=== PATIENT | male | born 1995 | race Caucasian/White ===

== ENCOUNTER 2020-05-12 17:30 | Emergency (ER) | payer MEDICAID, SELFPAY ==
[2020-05-12 18:01] VITALS: BP 133/73; PULSE 93; RESP 14; TEMP 36.5; O2SAT 98; BMI 22.0
[2020-05-12 19:21] VITALS: BP 110/58; PULSE 87; RESP 17; TEMP 36.9; O2SAT 98
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
--- NOTE | 2020-05-12 20:53 | PC.NURSE ---
Pt is resting in bed, no sign of distress.
[2020-05-12] MEDS: iohexoL 350 MG/ML 100 ML INFUS..BTL IV (21:24)
[2020-05-12 21:48] LABS: MANUAL DIFF FLAG NO
[2020-05-12 21:49] LABS: Basophils Absolute Auto 0.1 X10*3/uL (0.0-0.2); Basophils Percent Auto 0.9 % (0-2); Eosinophils Absolute Auto 0.1 X10*3/uL (0.0-0.4); Eosinophils Percent Auto 0.5 % (0-4); Hematocrit 38.7 % (42-52); Hemoglobin 13.4 g/dl (14.0-18.0); Imm Gran Abs Auto 0.03 X10*3/uL (0.00-0.03); Imm Gran Pct Auto 0.3 % (0.0-0.4); Lymphocytes Absolute Auto 2.2 X10*3/uL (1.2-4.9); Mean Corpuscular HGB Conc 34.6 g/dl (31.0-36.0); Mean Corpuscular Hemoglobin 29.9 pg (27.0-33.0); Mean Corpuscular Volume 86.4 fL (80-98); Monocytes Absolute Auto 0.9 X10*3/uL (0.1-1.2); Monocytes Percent Auto 7.7 % (2-11); Neutrophils Absolute Auto 8.3 X10*3/uL (2.0-8.3); Neutrophils Percent Auto 71.6 % (45-73); Platelet Count 289 X10*3/uL (160-400); Red Blood Count 4.48 X10*6/uL (4.60-5.80); Red Cell Distribution Width 13.1 % (11.0-16.0); White Blood Count 11.6 X10*3/uL (4.8-10.8)
[2020-05-12 22:19] VITALS: BP 94/56; PULSE 81; RESP 20; TEMP 36.7; O2SAT 98
[2020-05-12 22:22] LABS: Anion Gap 12 (12-20); Blood Urea Nitrogen 10 mg/dL (9-16); Carbon Dioxide 24 mmol/L (22-29); Chloride 106 mmol/L (96-108); Creatinine Clr Calc Pharmacy 127.6; Estimated Glomerular Filt Rate > 60; Glucose Random 86 mg/dL (60-115); Potassium 3.6 mmol/l (3.3-5.1); Sodium 138 mmol/L (135-145)
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
[2020-05-13] MEDS: Ibuprofen 600 MG TABLET PO (00:30)
[2020-05-13] MEDS: Amoxicillin/Potassium Clav 875 MG TABLET PO (00:31)
== END 2020-05-13 00:34 | disposition home or self-care (01) ==
PROVIDERS: Nurse Practitioner Family; Emergency Provider Emergency Medicine
DX: S41.112A Laceration without foreign body of left upper arm, initial encounter (principal); S10.93XA Contusion of unspecified part of neck, initial encounter; X99.8XXA Assault by other sharp object, initial encounter; M54.2 Cervicalgia; M25.511 Pain in right shoulder; Y93.9 Activity, unspecified; Y92.019 Unspecified place in single-family (private) house as the place of occurrence of the external cause; Y99.9 Unspecified external cause status
CPT/HCPCS: 36415; 70450; 70491; 71260; 73201; 74177; 80048; 85025; 90471; 90715; 99284

== ENCOUNTER 2020-12-26 11:12 | Emergency (ER) | payer MEDICAID, SELFPAY ==
--- NOTE | ~2020-12-26 | XR_ITS ---
EXAMINATION: XR CHEST CLINICAL INFORMATION: Difficulty breathing. Rule out pneumonia COMPARISON: CT chest 05/12/2020 TECHNIQUE: Portable AP upright view of the chest was obtained. FINDINGS: No significant abnormality is noted involving the heart, lungs, mediastinum, bony thorax or soft tissues. XR/XR chest 1V IMPRESSION: Unremarkable examination.
[2020-12-26 12:06] VITALS: BP 120/74; PULSE 95; RESP 16; TEMP 36.5; O2SAT 96; BMI 19.9
--- NOTE | 2020-12-26 12:21 | ED_ITS ---
HPI - URI/Sore Throat General Chief Complaint: Upper Respiratory Symptoms Stated Complaint: allergic reaction Time Seen by Provider: 12/26/20 12:14 Source: patient Mode of arrival: ambulatory Limitations: no limitations History of Present Illness HPI Narrative: 25 yo male with past medical history of asthma here with complaints of sore throat, cough with chest congestion x2 days. Also has some mild shortness of breath with wheezing. Ran out of his inhaler. No fevers or chills or sick contacts. No chest pain, leg swelling or pain. Related Data Previous Rx's Medication Instructions Recorded amoxicillin-pot clavulanate 1 tab PO Q12H 10 Days #20 tab 05/12/20 [Augmentin] ibuprofen 600 mg PO Q8H PRN #30 tab 05/12/20 Allergies Allergy/AdvReac Type Severity Reaction Status Date / Time No Known Allergies Allergy Verified 12/26/20 12:11 [No Known Allergies*] Review of Systems Review of Systems: Yes all other systems are reviewed and are negative Constitutional: Constitutional: Reports no additional constitutional complaints, Denies body ache(s), Denies chills, Denies fever(s), Denies headache(s) and Denies weakness Eyes: Eyes: Reports no additional eye complaints and Denies change in vision ENT: Reports system reviewed and no additional complaints, except as documented, Denies dizziness, Denies headache(s), Denies nasal congestion, Denies nasal discharge, Denies neck pain and Reports sore throat Cardiovascular: Cardiovascular: Reports no additional cardiovascular complaints, Denies chest pain, Denies leg edema and Reports dyspnea Respiratory: Respiratory: Reports no additional respiratory complaints, Reports cough and Reports dyspnea Gastrointestinal: Gastrointestinal: Reports no additional gastrointestinal complaints, Denies abdominal pain, Denies diarrhea, Denies nausea and Denies vomiting Genitourinary: Genitourinary: Denies urinary incontinence Musculoskeletal: Musculoskeletal: Reports no additional musculoskeletal complaints, Denies back pain, Denies arthralgias, Denies joint swelling, Denies neck pain, Denies numbness and Denies tingling Integumentary/Breasts: Skin/Breast: Reports system reviewed and no additional complaints, except as docu and Denies rash Neurologic: Reports system reviewed and no additional complaints, except as documented, Denies Abnormal speech present, Denies dizziness, Denies headache(s), Denies numbness, Denies tingling and Denies weakness [facility] Past Medical History Attestation statement: The following information was validated with the patient. Source: old records reviewed and nursing notes reviewed Medical History ADHD Bipolar disorder Personality disorder Social History Social History Substance Use Type: Marijuana Advance Directives: No Advance Directives Information Provided: No Physical Exam Vital Signs: Vital Signs: Last Vital Signs Temp 97.7 F 12/26/20 12:06 Pulse 87 12/26/20 14:33 Resp 18 12/26/20 14:33 BP 120/74 12/26/20 12:06 Pulse Ox 99 12/26/20 14:33 Body Mass Index 19.9 Const: General: cooperative, healthy appearing, comfortable and no acute distress Orientation/consciousness: patient oriented x3 Limitations: no limitations HENMT: Head: Yes normal to inspection Ears: hearing grossly normal bilaterally and TM's normal bilaterally General nose exam: Normal external nose present Face and sinus: Yes normal facial exam Mouth: Normal oral and palatal mucosa present Throat: Yes posterior oropharynx normal, Yes uvula midline, Yes abnormal tonsil (Bilateral tonsillar swelling and erythema) and No peritonsillar mass Eyes: General: appearance normal, both eyes and all related structures Pupils: Equal, round and reactive pupils present Neck: Neck: Yes normal visual inspection, Yes full ROM, Yes no lymphadenopathy and Yes no meningeal signs Chest: Chest palpation & inspection: normal inspection of the chest Resp: Other: Mild expiratory wheezing noted. Prolonged expirations Speaking full sentences in no apparent distress Effort & Inspection: normal respiratory effort Cardio: Rate: regular rate Rhythm: regular rhythm Peripheral pulses: Peripheral pulses 2+ throughout GI: Inspection: Yes normal to inspection Palpation (GI): Soft to palpation and nontender Auscultation: normal bowel sounds Back/Spine/Pelvis: Thoracic/Lumbar Spine: thoracic and lumbar spine normal to inspection Skin: General skin exam: no rashes or lesions noted Neuro: General: patient oriented x3, no meningeal signs, no focal motor deficits and normal sensation to monofilament Cranial nerves: Yes Equal, round and reactive pupils present Cognition (Neuro): normal cognition Speech: No Abnormal speech present Gait exam (Neuro): Normal gait present Motor exam (neuro): 5 motor strength present throughout Extrem: General: Yes normal to inspection, Yes no pedal edema and Yes no calf tenderness Course Course Course Narrative: 25-year-old male with a past medical history of asthma here with complaints of sore throat, cough, mild shortness of breath and wheezing for the last 2 days. On exam well appearing. 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 No lymphadenopathy. Mild expiratory wheezing on exam. Will check rapid strep, COVID, chest x-ray 1430-COVID screen positive. Strep negative. Chest x-ray shows no underlying infiltrate. Patient has stable saturations. Speaking full sentences in no apparent distress. Reviewed worrisome signs and symptoms such as shortness of breath, chest pain, fever which does not respond to Motrin and Tylenol. Comfortable with plan for discharge home MDM - URI/Sore Throat MDM Narrative Medical decision making narrative: Strep pharyngitis, viral syndrome, COVID-19, pneumonia Medical Records Attestation: I reviewed the patient's medical records. Lab Data Attestation: I reviewed the patient's lab results. Labs: Lab Results 12/26/20 12/26/20 Range/Units 12:19 12:19 Coronavirus (PCR) POSITIVE A (Negative) Influenza Type A (PCR) NEGATIVE (Negative) Influenza Type B (PCR) NEGATIVE (Negative) RSV RNA Qual (PCR) NEGATIVE (Negative) S. pyogenes GrpA GISELLA Negative (Negative) Discharge Plan Discharge Clinical Impression: COVID-19 Patient Disposition: Home, Self-Care Instructions: COVID-19 (Coronavirus Disease 2019) (ED) Additional Instructions: Increase fluids, rest Motrin or Tylenol for pain or fever Albuterol 2 puffs every 4-6 hours as needed for cough or wheezing You need to quarantine for a total of 10 days and be symptom free for 24 hrs before ending your quarantine Return for severe shortness of breath, chest pain, fever which does not respond to Motrin or Tylenol Prescriptions: No Action amoxicillin-pot clavulanate [Augmentin] 875-125 mg tablet 1 tab PO Q12H 10 Days Qty: 20 RF: 0 ibuprofen 600 mg tablet 600 mg PO Q8H PRN (Reason: pain) Qty: 30 RF: 0 Referrals: [facility] [Primary Care Provider] - 2 days Interventions: ED Discharge Assessment Last Done: 12/26/20 14:34 Discharge Date/Time: 12/26/20 14:35
[2020-12-26] MEDS: Albuterol Sulfate 90 MCG 8 GM INHALER 2 PUFF INHALE (12:37)
[2020-12-26 13:43] LABS: IDNOW Serial# 9DD0AD1C; Strep A Nucleic Acid Negative (Negative)
[2020-12-26 14:14] LABS: Influenza A PCR NEGATIVE (Negative); Influenza B PCR NEGATIVE (Negative); Resp Syncy Virus RNA Qual PCR NEGATIVE (Negative); SARS COV2 PCR INHOUSE POSITIVE (Negative)
[2020-12-26 14:33] VITALS: PULSE 87; RESP 18; O2SAT 99
== END 2020-12-26 14:35 | disposition home or self-care (01) ==
PROVIDERS: Emergency Provider Emergency Medicine Emergency Medical Services
DX: U07.1 COVID-19 (principal); J45.909 Unspecified asthma, uncomplicated; F12.90 Cannabis use, unspecified, uncomplicated
CPT/HCPCS: 0241U; 36415; 71045; 87651; 99283; 99284

== ENCOUNTER 2021-09-13 18:26 | Emergency (ER) | payer MEDICARE, MEDICAID, SELFPAY ==
--- NOTE | ~2021-09-13 | XR_ITS ---
EXAMINATION: XR SHOULDER, LEFT CLINICAL INFORMATION: Rule out injury, pain. COMPARISON: Chest radiograph dated from 12/26/2020. TECHNIQUE: Four views of the left shoulder. FINDINGS: The bones and soft tissues are normal. No fracture. Glenohumeral and acromioclavicular alignment is anatomic with normal joint space. No abnormal soft tissue calcifications. XR/XR shoulder LT min 2V IMPRESSION: Normal left shoulder.
[2021-09-13 18:59] VITALS: BP 121/71; PULSE 87; RESP 16; TEMP 36.1; O2SAT 99; BMI 20.5
--- NOTE | 2021-09-13 19:41 | ED_ITS ---
HPI - Extremity Problem General Chief complaint: Extremity Problem Stated complaint: shoulder pain Time Seen by Provider: 09/13/21 19:38 Source: patient Mode of arrival: ambulatory Limitations: no limitations History of Present Illness HPI Narrative: This is a 26-year-old male no known medical history presenting to the emergency department with atraumatic left shoulder pain x1 year. Patient tells me that he woke up and just started experiencing pain about a year ago. He explains the pain as a pinching/discomfort that is constant in nature. It is worse with movement better at rest. It is worse with certain positions such as moving objects overhead, or across the body. He tells me he is able to move his shoulder in all directions it is just uncomfortable. He denies numbness, tingling, fevers, chills, trauma. The reason he came in today is because it has still not gone away and he wanted to get evaluated for the 1st time. He has not tried any medicines for this pain he tells me at times he takes ibuprofen. MD Complaint: joint paint Onset (ago): year(s) (1) Pain Consistency: constant Location: left Quality: other (pinching, sore ) Radiation: none Relieving factors: immobilization Exacerbating factors: range of motion Associated symptoms: denies other symptoms Related Data Previous Rx's Medication Instructions Recorded amoxicillin 875 mg-potassium 1 tab PO Q12H 10 Days #20 tab 05/12/20 clavulanate 125 mg tablet (Augmentin) ibuprofen 600 mg tablet 600 mg PO Q8H PRN #30 tab 05/12/20 cyclobenzaprine 10 mg tablet 10 mg PO BEDTIME PRN #7 tab 09/13/21 lidocaine 5 % topical patch 1 patch TOPICAL DAILY PRN #15 ea 09/13/21 Allergies Allergy/AdvReac Type Severity Reaction Status Date / Time pollen extracts Allergy Sneezing Verified 09/13/21 18:58 Review of Systems Review of Systems: Constitutional : No Weight loss, No Fever, No Chills, No Fatigue, No Malaise ENT/Mouth : No sore throat, No Rhinorrhea Eyes: No Eye Pain, No Swelling, No Redness Cardiovascular : No Chest Pain, No SOB, No Dyspnea on Exertion, No Orthopnea, No Edema, No Palpitations Respiratory : No Cough, No Sputum, No Wheezing Gastrointestinal : No Nausea, No Vomiting, No Diarrhea, No Constipation, No abdominal Pain, No Hematochezia, No Melena Genitourinary : No Dysuria, No Urinary Frequency, No Hematuria, Musculoskeletal : + joint pain, No Myalgias, No Joint Swelling Skin : No Skin Lesions, No rash Neuro : No Weakness, No Numbness, No Dizziness, No Headache Psych : No Anxiety/Panic, No Depression All other systems reviewed and are negative Yes all other systems are reviewed and are negative [facility] Past Medical History Attestation statement: The following information was validated with the patient. Source: old records reviewed and nursing notes reviewed Medical History ADHD Bipolar disorder Personality disorder Social History Social History Substance Use Type: Marijuana Advance Directives: No Advance Directives Information Provided: No Physical Exam Vital Signs: Vital Signs: Last Vital Signs Temp 97 F 09/13/21 18:59 Pulse 87 09/13/21 18:59 Resp 16 09/13/21 18:59 BP 121/71 09/13/21 18:59 Pulse Ox 99 09/13/21 18:59 BMI result Body Mass Index 20.5 VSS Appearance: Alert.? Oriented X3.? No acute distress.? Head: Normocephalic, atraumatic, no step-offs or deformities Eyes: Pupils equal, round and reactive to light.? ENT: Pharynx normal.? Neck: Normal inspection.? Neck supple.? CVS: Normal heart rate and rhythm.? Pulses normal.? Respiratory: No respiratory distress.? Breath sounds normal.? Abdomen: Soft and nontender.? Skin: Skin warm and dry.? Normal skin color.? Normal skin turgor.? Extremities: No lower extremity edema.? No calf ttp. 5/5 strength to bilateral upper and lower extremities. Bilateral upper extremities with 2+ radial pulses equal and bilateral. Full range of motion to bilateral shoulders. No step-offs or deformities. No evident ligament or tendon involvement. No wrist drop bilaterally. Capillary refill less than 2 seconds bilaterally. Sensation and motor intact bilateral upper extremities. + discomfort with palpation overlying the posterior aspect of the left scapula. However, no overlying skin changes. Back: No midline tenderness, no C-spine tenderness, full range of motion, no CVA tenderness bilaterally Neuro: Oriented X 3.? No motor deficit.? No sensory deficit. CN 2-12 intact Course Reevaluation(s) Reevaluation #1: X-ray of the shoulder within normal limits. Plan at this time is to discharge patient home on cyclobenzaprine and lidocaine patches. Advised follow-up with PCP and/or ortho if symptoms do not improving in 2 weeks. Explained to him that MRI is modality of choice however we do not do those in the emergency department unless they are emergent which I do not think is the case. Educated him on worrisome signs and symptoms outlined on his discharge. Comfortable with discharge home Time: 19:58 MDM - Extremity (Nontraumatic) MDM Narrative Medical decision making narrative: 1944 26 yo male presnts with atruamtic left shoulder pain X1 year. PE 5/5 strength to bilateral upper and lower extremities. Bilateral upper extremities with 2+ radial pulses equal and bilateral. Full range of motion to bilateral shoulders. No step-offs or deformities. No evident ligament or tendon involvement. No wrist drop bilaterally. Capillary refill less than 2 seconds bilaterally. Sensation and motor intact bilateral upper extremities. Reports discomfort with palpation overlying the posterior aspect of the left scapula. However, no overlying skin changes. Neurovascularly intact. Plan at this time is to obtain imaging. Medical Records Attestation: I reviewed the patient's medical records. Lab Data Attestation: I reviewed the patient's lab results. Critical Care Time Critical Care Time Critical Care Time: No Discharge Plan Discharge Clinical Impression: Left shoulder pain Patient Disposition: Home, Self-Care Instructions: Heat Pack Application (ED), Shoulder Pain (ED) Additional Instructions: Take your medications as prescribed. If you were prescribed antibiotics today, it is important that you take your medication to their entirety, do not skip any doses, do not finish them early. Follow-up with your primary care provider this week. Follow-up with orthopedics if pain does not improve in 2 weeks. Return to the emergency department with new or worsening symptoms. Such as worsening pain, loss of sensation, numbness or tingling. In case of emergency call 911 Your x-ray did not show any acute fractures or dislocations or any acute findings. It is likely that of your still experiencing pain you may require further imaging such as an MRI to look at ligaments or tendons. As we discussed I am unable to tell you if there is any disruption to ligaments or tendons however, your exam looked good. You can take ibuprofen every 6 hours, Tylenol every 4 hours needed for pain. Cyclobenzaprine is a muscle relaxer that has been sent to your pharmacy this can make you drowsy please not drive or operate any machinery while taking this medicine. I advise you take it at night. Feel better! Prescriptions: New cyclobenzaprine 10 mg tablet 10 mg PO BEDTIME PRN (Reason: muscle spasm) Qty: 7 0RF lidocaine 5 % adhesive patch,medicated 1 patch topical DAILY PRN (Reason: pain) Qty: 15 0RF Rx Instructions: leave on most painful area for up to 12 hrs No Action amoxicillin-pot clavulanate [Augmentin] 875-125 mg tablet 1 tab PO Q12H 10 Days Qty: 20 0RF ibuprofen 600 mg tablet 600 mg PO Q8H PRN (Reason: pain) Qty: 30 0RF Referrals: Octavio Parker MD [Physician] - 2 weeks Physician,Unknown J [Primary Care Provider] - 2 days Stand Alone Forms: Work/School Release
[2021-09-13] MEDS: Ketorolac Tromethamine 15 MG/ML VIAL 30 MG IM (20:03)
== END 2021-09-13 20:35 | disposition home or self-care (01) ==
LOC: HO.ED 19:42
PROVIDERS: Emergency Provider Emergency Medicine Emergency Medical Services
DX: M25.512 Pain in left shoulder (principal)
CPT/HCPCS: 73030; 96372; 99284; J1885

== ENCOUNTER → 2021-11-02 15:03 | Outpatient (BNVA) | payer MEDICARE, MEDICAID, SELFPAY | PROVIDERS: Visit Provider Physician Assistant | DX: G25.89 Other specified extrapyramidal and movement disorders (principal) | CPT/HCPCS: 99202 ==

== ENCOUNTER 2022-01-24 15:00 | Outpatient (RCR) | payer MEDICARE, MEDICAID, SELFPAY | END 2022-02-09 15:55 | disposition home or self-care (01) | LOC: HO.PT 15:00 | PROVIDERS: PCP Internal Medicine; Visit Provider Physician Assistant | DX: G25.89 Other specified extrapyramidal and movement disorders (principal) | CPT/HCPCS: 97110; 97112; 97140; 97162 ==

== ENCOUNTER 2022-10-10 20:43 | Emergency (ER) | payer MEDICARE, MEDICAID, SELFPAY ==
--- NOTE | 2022-10-10 | ECG_ITS ---
Test Reason : CX PAIN Blood Pressure : / mmHG Vent. Rate : 072 BPM Atrial Rate : 072 BPM P-R Int : 160 ms QRS Dur : 092 ms QT Int : 348 ms P-R-T Axes : 071 063 053 degrees QTc Int : 381 ms Normal sinus rhythm Normal ECG No previous ECGs available Referred By: Generic ED Physician Electronically Signed By:OUMAR PALACIOS MD
[2022-10-10 21:18] VITALS: BP 110/70; PULSE 73; RESP 18; TEMP 36.3; O2SAT 99; BMI 21.0
[2022-10-10 21:43] LABS: MANUAL DIFF FLAG NO
[2022-10-10 21:48] LABS: Basophils Absolute Auto 0.1 X10*3/uL (0.0-0.2); Basophils Percent Auto 1.2 % (0-2); Eosinophils Absolute Auto 0.1 X10*3/uL (0.0-0.4); Eosinophils Percent Auto 1.5 % (0-4); Hematocrit 43.1 % (42.0-52.0); Hemoglobin 14.6 g/dl (14.0-18.0); Imm Gran Abs Auto 0.04 X10*3/uL (0.00-0.03); Imm Gran Pct Auto 0.4 % (0.0-0.4); Lymphocytes Absolute Auto 1.6 X10*3/uL (1.2-4.9); Lymphocytes Percent Auto 16.3 % (20-40); Mean Corpuscular HGB Conc 33.9 g/dl (31.0-36.0); Mean Corpuscular Hemoglobin 29.3 pg (27.0-33.0); Mean Corpuscular Volume 86.5 fL (80.0-98.0); Monocytes Absolute Auto 0.8 X10*3/uL (0.1-1.2); Monocytes Percent Auto 7.8 % (2-11); Neutrophils Percent Auto 72.8 % (45-73); Platelet Count 327 X10*3/uL (160-400); Red Blood Count 4.98 X10*6/uL (4.60-5.80); Red Cell Distribution Width 12.9 % (11.0-16.0); White Blood Count 9.6 X10*3/uL (4.8-10.8)
[2022-10-10 21:57] LABS: Anion Gap 14 (12-20); Blood Urea Nitrogen 11 mg/dL (9-16); Calcium 9.2 mg/dL (8.4-10.2); Carbon Dioxide 28 mmol/L (22-29); Chloride 105 mmol/L (96-108); Creatinine Clr Calc Pharmacy 88.1; Estimated Glomerular Filt Rate > 60; Glucose Random 82 mg/dL (60-115); Potassium 3.7 mmol/L (3.3-5.1); Sodium 143 mmol/L (135-145)
[2022-10-10 22:09] LABS: Troponin-I High Sensitivity < 3.5 ng/L (<3.5-35.0)
[2022-10-10 22:30] VITALS: PULSE 78; RESP 14; O2SAT 97
--- NOTE | 2022-10-10 22:30 | PC.NURSE ---
pt resting on stretcher at this time, reporting 10/10 sharp pain in left chest, states pain has been present for 3 days and it happened upon waking up, has not gone away since
--- NOTE | 2022-10-10 23:55 | ED.CHESTPAIN ---
HPI - Chest Pain General Chief Complaint: Chest Pain Stated Complaint: Chest pain Time Seen by Provider: 10/10/22 22:46 Source: patient Mode of arrival: ambulatory Limitations: no limitations History of Present Illness HPI narrative: Patient history of anxiety/bipolar disorder noticed pain in the left costal margin last 3 days sharp in character it is worse with and palpation is taking deep breath no shortness of breath no cough no fever no chills no rash no history of similar complaints in the past no history of cocaine use Related Data Previous Rx's Medication Instructions Recorded ibuprofen 600 mg tablet 600 mg PO Q8H PRN pain #30 tabs 05/12/20 lidocaine 5 % topical patch 1 patch topical DAILY PRN pain #15 09/13/21 ea naproxen 500 mg tablet 500 mg PO BID 30 days #60 tabs 11/02/21 ibuprofen 600 mg tablet 600 mg PO Q6H PRN fever or pain 10/10/22 #30 tabs Allergies Allergy/AdvReac Type Severity Reaction Status Date / Time pollen extracts Allergy Sneezing Verified 11/02/21 15:12 Review of Systems Review of Systems: Yes all other systems are reviewed and are negative [facility] Past Medical History Medical History ADHD Bipolar disorder Personality disorder Social History Social History Household Members Other:: mom Housing: Apartment Substance Use Type: Marijuana Advance Directives: No Advance Directives Information Provided: Yes Current occupational status: employed Current occupation: [employer] /Left handed Physical Exam Vital Signs: Vital Signs: Last Vital Signs Temp 97.3 F 10/10/22 21:18 Pulse 78 10/10/22 22:30 Resp 14 10/10/22 22:30 BP 110/70 10/10/22 21:18 Pulse Ox 97 10/10/22 22:30 O2 Del Method 10/10/22 22:30 BMI result Body Mass Index 21.0 Appearance: Alert. Oriented X3. No acute distress and she. Eyes: PERRLA, No Nystagmus ENT: Pharynx normal. Oral Mucosa moist Neck: Normal inspection. Neck supple. CVS: Normal heart rate and rhythm. Pulses normal. Respiratory: No respiratory distress. Equal air entry bilateral, no wheezing/rales/rhonchi tender left 2nd costochondral junction Abdomen: Soft and nontender. Bowel sounds are present, no mass palpable, no CVA tenderness Skin: Skin warm and dry. Normal skin color. Normal skin turgor. Extremities: No lower extremity edema. No calf tenderness Neuro: Oriented X 3. Medical Decision Making Medical Decision Making [facility] Narrative: Patient with costochondritis heart score of 0 discharge patient home on ibuprofen Lab Data [facility] Lab Attestation statement: I reviewed the patient's lab results. 10/10/22 21:37 10/10/22 21:37 Labs: Lab Results 10/10/22 10/10/22 10/10/22 Range/Units 21:37 21:37 21:37 WBC 9.6 (4.8-10.8) X10*3/uL RBC 4.98 (4.60-5.80) X10*6/uL Hgb 14.6 (14.0-18.0) g/dl Hct 43.1 (42.0-52.0) % MCV 86.5 (80.0-98.0) fL MCH 29.3 (27.0-33.0) pg MCHC 33.9 (31.0-36.0) g/dl RDW 12.9 (11.0-16.0) % Plt Count 327 (160-400) X10*3/uL MPV 9.0 L (9.4-12.4) fL Immature Gran % (Auto) 0.4 (0.0-0.4) % Neut % (Auto) 72.8 (45-73) % Lymph % (Auto) 16.3 L (20-40) % Randall % (Auto) 7.8 (2-11) % Eos % (Auto) 1.5 (0-4) % Baso % (Auto) 1.2 (0-2) % Lymph # (Auto) 1.6 (1.2-4.9) X10*3/uL Randall # (Auto) 0.8 (0.1-1.2) X10*3/uL Eos # (Auto) 0.1 (0.0-0.4) X10*3/uL Baso # (Auto) 0.1 (0.0-0.2) X10*3/uL Abs Immat Gran (auto) 0.04 H (0.00-0.03) X10*3/uL Absolute Neuts (auto) 7.0 (2.0-8.3) x10*3/uL Absolute Nucleated RBC 0.000 (0.0-0.012) X10*3/uL Nucleated RBC % (auto) 0.0 (0.0-0.2) /100WBC Sodium 143 (135-145) mmol/L Potassium 3.7 (3.3-5.1) mmol/L Chloride 105 (96-108) mmol/L Carbon Dioxide 28 (22-29) mmol/L Anion Gap 14 (12-20) BUN 11 (9-16) mg/dL Creatinine 1.12 (0.5-1.4) mg/dL Estim Creat Clear Calc 88.1 Estimated GFR > 60 Random Glucose 82 (60-115) mg/dL Calcium 9.2 (8.4-10.2) mg/dL Troponin I High Sens < 3.5 (<3.5-35.0) ng/L Independent Interpretation I performed an independent interpretation of an: EKG Interpretation: Normal sinus rhythm heart rate 72 beats per minute normal interval normal axis no acute ST-T changes no acute ischemia Discharge Plan Discharge Clinical Impression: Costalchondritis Patient Disposition: Home, Self-Care Instructions: Costochondritis (ED) Additional Instructions: Take ibuprofen for pain Follow-up with PCP as needed Prescriptions: New ibuprofen 600 mg tablet 600 mg PO Q6H PRN (Reason: fever or pain) Qty: 30 0RF No Action ibuprofen 600 mg tablet 600 mg PO Q8H PRN (Reason: pain) Qty: 30 0RF lidocaine 5 % adhesive patch,medicated 1 patch topical DAILY PRN (Reason: pain) Qty: 15 0RF Rx Instructions: leave on most painful area for up to 12 hrs naproxen 500 mg tablet 500 mg PO BID 30 Days Qty: 60 3RF
[2022-10-11] MEDS: oxyCODONE HCl Immed Release 5 MG TABLET 10 MG PO (00:10)
[2022-10-11] MEDS: Ibuprofen 600 MG TABLET PO (00:11)
== END 2022-10-11 01:26 | disposition home or self-care (01) ==
PROVIDERS: Emergency Provider Internal Medicine; PCP Internal Medicine
DX: R07.89 Other chest pain (principal); M94.0 Chondrocostal junction syndrome [Tietze]; Z79.899 Other long term (current) drug therapy
CPT/HCPCS: 36415; 80048; 84484; 85025; 93005; 99283; 99284

== ENCOUNTER 2024-04-09 11:27 | Emergency (ER) | payer MEDICARE, MEDICAID, SELFPAY ==
--- NOTE | ~2024-04-09 | XR_ITS ---
EXAMINATION: XR FOOT, RIGHT CLINICAL INFORMATION: Pain in third toe COMPARISON: None available. TECHNIQUE: AP, lateral, and oblique views of the right foot. FINDINGS: The bones and soft tissues are normal. No fracture. Alignment is anatomic. Joint spaces are maintained. XR/XR foot RT min 3V IMPRESSION: Normal right foot. Electronically signed by: Isael Pate MD 04/09/2024 02:02 PM EDT
--- NOTE | 2024-04-09 12:09 | ED_ITS ---
HPI - General Adult General Chief complaint: Extremity Injury, Lower Stated complaint: r foot swelling Time Seen by Provider: 04/09/24 13:36 Source: patient, RN notes reviewed and old records reviewed Mode of arrival: ambulatory History of Present Illness ED Provider: Chantel Pierre PA-C HPI narrative: 28-year-old male with a past medical history bipolar, ADHD, presenting to the ED complaining of atraumatic right foot pain x 3-4 days. States woke up with pain. Denies known injury, trauma/fall, fever/chills, numbness/tingling, calf pain. Denies history of gout Related Data Previous Rx's ?Medication ?Instructions ?Recorded ibuprofen 600 mg tablet 600 mg PO Q8H PRN pain #30 tabs 05/12/20 lidocaine 5 % topical patch 1 patch topical DAILY PRN pain #15 09/13/21 ea naproxen 500 mg tablet 500 mg PO BID 30 days #60 tabs 11/02/21 ibuprofen 600 mg tablet 600 mg PO Q6H PRN fever or pain 10/10/22 #30 tabs clotrimazole 1 % topical cream 1 appl topical BID 2 weeks #45 04/09/24 grams Allergies Allergy/AdvReac Type Severity Reaction Status Date / Time pollen extracts Allergy Sneezing Verified 04/09/24 12:11 Review of Systems Review of Systems: Yes all other systems are reviewed and are negative Constitutional: Constitutional: Reports as per [facility] Past Medical History Attestation statement: The following information was validated with the patient. Source: old records reviewed Medical History Bipolar disorder Personality disorder ADHD Social History Social History Household Members Other:: mom Housing: Apartment Substance Use Type: Marijuana Advance Directives: No Advance Directives Information Provided: No Do you have a plan to hurt others: No Plan Current occupational status: employed Current occupation: [employer] /Left handed Physical Exam ED Vital Signs: Vital Signs - 24 hr 04/09/24 12:10 Temperature 98.3 F Pulse Rate 75 Respiratory Rate 16 Blood Pressure 105/56 L Pulse Oximetry 99 Oxygen Delivery Method Room Air BMI result Body Mass Index 21.0 Const General: cooperative, healthy appearing and no acute distress Orientation/consciousness: patient oriented x3 Limitations: no limitations HENMT Head: Yes normal to inspection and Yes atraumatic Ears: hearing grossly normal bilaterally General nose exam: Normal external nose present Face and sinus: Yes normal facial exam Eyes General: appearance normal, both eyes and all related structures EOM: EOMs intact bilaterally Neck Neck: Yes normal visual inspection and Yes no meningeal signs Resp Effort & Inspection: normal respiratory effort and no respiratory distress Cardio Rate: regular rate Skin Rashes: no rashes Wounds: no wounds Neuro General: patient oriented x3, tone normal and no meningeal signs Cranial nerves: Yes CN's II-XII intact bilaterally Gait exam (Neuro): Normal gait present Extrem Other: + mild swelling noted to dorsal aspect of right foot at 3-4th MTP. Tender to palpation. No erythema or insect bite. No erythema, fluctuance/induration. Neurovascularly intact + diffuse tinea pedis Course Course Course Narrative: This is a rapid medical exam performed by Coleman Chan NP: Additional HPI, ROS, PE not included below will be deferred to primary provider. Patient is a 28-year-old presenting to the ED with complaint of pain to right 3rd toe for the past few days. Denies fall or other trauma. Tenderness over MTP joint. Plan: xray XR foot RT min 3V IMPRESSION: Normal right foot. Results discussed with patient including worrisome signs and symptoms and strict return precautions, and when to return to the emergency department. They verbalized understanding and feel safe for discharge at this time. Medical Decision Making Medical Decision Making MDM Narrative: 2-year-old female with no significant past medical history presenting to ED with parents complaining of right eye swelling noted this morning. On exam vital signs stable, NAD, nontoxic appearing, physical exam as noted above. Concern for occult fracture vs contusion vs possible insect bite. No evidence of cellulitis. Lower suspicion for gout at this time Plan: X-ray Please refer to course for remaining clinical decision making, interpretation of labs/imaging results, and discussions with consultants and/or family members. Differential Diagnosis Differential Diagnoses: The differential diagnosis associated with the presentation includes As above Independent Interpretation I performed an independent interpretation of an: Plain X-Ray Radiology Impression Discussion of test interpretation with radiology: I have reviewed the radiologist's reading. External Record Review External record reviewed: Inpatient record, Office record, Outpatient record, Prior outpatient labs, Prior outpatient radiology, Primary care record and Outside ED record Tests considered The following testing was considered but not selected: As above Prescription Management I considered prescription management with: Pain Medication Discharge Plan Discharge Clinical Impression: Acute foot pain Patient Disposition: Home, Self-Care Instructions: Arthralgia (ED) Additional Instructions: Your x-rays unremarkable Ice and elevate Take Tylenol and Motrin for pain If area begins to look infected, is red, or there is drainage return to the ED Prescriptions: New clotrimazole 1 % cream 1 appl topical BID 14 Days Qty: 45 0RF No Action ibuprofen 600 mg tablet 600 mg PO Q8H PRN (Reason: pain) Qty: 30 0RF ibuprofen 600 mg tablet 600 mg PO Q6H PRN (Reason: fever or pain) Qty: 30 0RF lidocaine 5 % adhesive patch,medicated 1 patch topical DAILY PRN (Reason: pain) Qty: 15 0RF Rx Instructions: leave on most painful area for up to 12 hrs naproxen 500 mg tablet 500 mg PO BID 30 Days Qty: 60 3RF Referrals: Physician,Unknown J [Primary Care Provider] - Vineet Gonzalez MD [Physician] - Stand Alone Forms: Work/School Release Print Language: Danish
[2024-04-09 12:10] VITALS: BP 105/56; PULSE 75; RESP 16; TEMP 36.8; O2SAT 99; BMI 21.0
[2024-04-09 16:24] VITALS: BP 105/56; PULSE 75; RESP 16; TEMP 36.8; O2SAT 99
== END 2024-04-09 16:25 | disposition home or self-care (01) ==
PROVIDERS: Emergency Provider Emergency Medicine
DX: M79.671 Pain in right foot (principal); F90.9 Attention-deficit hyperactivity disorder, unspecified type; F31.9 Bipolar disorder, unspecified; F12.90 Cannabis use, unspecified, uncomplicated; Z79.899 Other long term (current) drug therapy
CPT/HCPCS: 73630; 99283

== ENCOUNTER 2024-06-06 16:38 | Emergency (ER) | payer MEDICARE, MEDICAID, SELFPAY ==
--- NOTE | ~2024-06-06 | XR_ITS ---
EXAMINATION: XR FOREARM, LEFT CLINICAL INFORMATION: Injury COMPARISON: None available. TECHNIQUE: AP and lateral views of the left forearm were obtained. FINDINGS: The bones and soft tissues are normal. No fracture. Imaged portions of the elbow and wrist are unremarkable. XR/XR forearm LT 2V IMPRESSION: Normal left forearm. Electronically signed by: Vladimir Coleman MD 06/06/2024 05:43 PM EST
[2024-06-06 17:06] VITALS: BP 125/78; PULSE 79; RESP 16; TEMP 37.1; O2SAT 99; BMI 20.7
--- NOTE | 2024-06-06 17:24 | ED.EXTPRO ---
HPI - Extremity Problem General Chief complaint: Extremity Injury, Upper Stated complaint: Left arm swollen due to impact Time Seen by Provider: 06/06/24 19:15 Source: patient Mode of arrival: ambulatory Limitations: no limitations History of Present Illness HPI Narrative: Patient is a 20-year-old male who presents emergency department for evaluation, endorses running through a field last night accidentally striking his mid left forearm onto a ?Pole sustaining a small 0.25 cm superficial laceration and has localized swelling and tenderness to the area. Pain is increasing, feels pain with movement of the fingers, if I try to make a fist . Denies any IVDA, prior injury to this arm. No fevers or chills. No pus-like drainage. Related Data Previous Rx's ?Medication ?Instructions ?Recorded ibuprofen 600 mg tablet 600 mg PO Q8H PRN pain #30 tabs 05/12/20 lidocaine 5 % topical patch 1 patch topical DAILY PRN pain #15 09/13/21 ea naproxen 500 mg tablet 500 mg PO BID 30 days #60 tabs 11/02/21 ibuprofen 600 mg tablet 600 mg PO Q6H PRN fever or pain 10/10/22 #30 tabs clotrimazole 1 % topical cream 1 appl topical BID 2 weeks #45 04/09/24 grams Allergies Allergy/AdvReac Type Severity Reaction Status Date / Time pollen extracts Allergy Sneezing Verified 06/06/24 17:10 Review of Systems Review of Systems: Yes all other systems are reviewed and are negative [facility] Past Medical History Attestation statement: The following information was validated with the patient. Source: old records reviewed Medical History Bipolar disorder Personality disorder ADHD Social History Social History Household Members Other:: mom Housing: Apartment Substance Use Type: Marijuana Current occupational status: employed Current occupation: [employer] /Left handed Physical Exam Vital Signs: Vital Signs: Last Vital Signs Temp 98.7 F 06/06/24 17:06 Pulse 79 06/06/24 17:06 Resp 16 06/06/24 17:06 BP 125/78 06/06/24 17:06 Pulse Ox 99 06/06/24 17:06 O2 Del Method Room Air 06/06/24 17:06 BMI result Body Mass Index 20.7 Appearance: Alert.?Oriented to person, place and time. No acute distress.?Normal affect. CVS: Heart sounds normal. Normal heart rate and rhythm.? Pulses normal.?? Respiratory: No respiratory distress.? Lung sounds clear to auscultation bilaterally?? Skin: Skin warm and dry.? Normal skin color.? Extremities: Localized swelling to the mid left forearm with small 0.25 cm superficial abrasion. Full range of motion to the elbow wrist and digits. 2+ radial pulse. Neuro: Moves all extremities spontaneously. Sensation intact bilaterally. Ambulates with normal steady gait. Medical Decision Making Medical Decision Making MDM Narrative: Patient is a 28-year-old male who presents emergency department for evaluation of traumatic left forearm pain as per HPI. Overall well-appearing, nontoxic. Extremities neurovascularly intact distally. X-ray is without evidence of acute fracture dislocation. Very superficial abrasion, not amenable to repair with sutures. Cleansed with saline and Betadine. She was for pain at this time secondary to contusion for which we discussed conservative treatment. All questions were answered. Stable for discharge and outpatient follow-up with primary care doctor. Differential Diagnosis Differential Diagnoses: The differential diagnosis associated with the presentation includes (See narrative above) Independent Interpretation I performed an independent interpretation of an: Plain X-Ray (No fracture) Radiology Impression Discussion of test interpretation with radiology: I have reviewed the radiologist's reading. Radiologist Impression: XR/XR forearm LT 2V IMPRESSION: Normal left forearm. Independent Historian Clinical information obtained from an independent historian. History obtained from or confirmed by: Spouse External Record Review External record reviewed: Outpatient record Prescription Management I considered prescription management with: Pain Medication (Tylenol/ibuprofen) Discharge Plan Discharge Clinical Impression: Contusion of forearm, left Patient Disposition: Home, Self-Care Instructions: Contusion in Adults (ED) Additional Instructions: Be sure to rest, refrain from any heavy lifting. Apply ice to the area for 10-15 minutes 3-4 times daily. You can take ibuprofen 200 mg, 3 tablets (600mg) every 6-8 hours as needed for pain, in addition to Tylenol 500 mg, 2 tablets (1,000mg) every 4-6 hours as needed for pain, but not to exceed 3 doses daily (3,000mg).? Follow-up with your primary care doctor as needed. Prescriptions: No Action ibuprofen 600 mg tablet 600 mg PO Q8H PRN (Reason: pain) Qty: 30 0RF ibuprofen 600 mg tablet 600 mg PO Q6H PRN (Reason: fever or pain) Qty: 30 0RF lidocaine 5 % adhesive patch,medicated 1 patch topical DAILY PRN (Reason: pain) Qty: 15 0RF Rx Instructions: leave on most painful area for up to 12 hrs clotrimazole 1 % cream 1 appl topical BID 14 Days Qty: 45 0RF naproxen 500 mg tablet 500 mg PO BID 30 Days Qty: 60 3RF Interventions: ED Discharge Assessment Last Done: 06/06/24 19:18 Print Language: Italian
[2024-06-06 19:18] VITALS: BP 125/78; PULSE 79; RESP 16; TEMP 37.1; O2SAT 99
== END 2024-06-06 19:19 | disposition home or self-care (01) ==
PROVIDERS: Emergency Provider Internal Medicine
DX: S50.12XA Contusion of left forearm, initial encounter (principal); W22.8XXA Striking against or struck by other objects, initial encounter; Y93.9 Activity, unspecified; Y92.9 Unspecified place or not applicable; Y99.9 Unspecified external cause status
CPT/HCPCS: 73090; 99282; 99283

== ENCOUNTER 2024-11-13 10:31 | Emergency (ER) | payer MEDICARE, MEDICAID, SELFPAY ==
[2024-11-13 10:37] VITALS: BP 106/63; PULSE 90; RESP 16; TEMP 36.6; O2SAT 97; BMI 19.8
--- NOTE | 2024-11-13 11:09 | PC.NURSE ---
Report received, taken over care at this time.
--- NOTE | 2024-11-13 11:21 | ED.GENADULT ---
HPI - General Adult General Chief complaint: Allergic Reaction Stated complaint: Allergies, Dry Patch On Hair Time Seen by Provider: 11/13/24 11:06 Source: patient Limitations: no limitations History of Present Illness ED Provider: Roe VALE narrative: 29-year-old male presenting for allergies and packed on scalp. Patient states that every year in October he experiences daily allergies primarily consisting of nasal congestion and watery eyes. Patient is also complaining of dry itchy patch to frontal scalp that has been present for the past few months. He has attempted he using head and shoulders with no improvement in symptoms. Patient has no other complaints Related Data Previous Rx's ?Medication ?Instructions ?Recorded ibuprofen 600 mg tablet 600 mg PO Q8H PRN pain #30 tabs 05/12/20 lidocaine 5 % topical patch 1 patch topical DAILY PRN pain #15 09/13/21 ea naproxen 500 mg tablet 500 mg PO BID 30 days #60 tabs 11/02/21 ibuprofen 600 mg tablet 600 mg PO Q6H PRN fever or pain 10/10/22 #30 tabs clotrimazole 1 % topical cream 1 appl topical BID 2 weeks #45 04/09/24 grams cetirizine 10 mg tablet 10 mg PO DAILY #14 tabs 11/13/24 triamcinolone acetonide 0.025 % 1 appl topical DAILY #15 grams 11/13/24 topical cream Allergies Allergy/AdvReac Type Severity Reaction Status Date / Time pollen extracts Allergy Sneezing Verified 11/13/24 10:38 Review of Systems Review of Systems: Yes all other systems are reviewed and are negative PMFSH Past Medical History Medical History Bipolar disorder Personality disorder ADHD Social History Social History Household Members Other:: mom Housing: Apartment Substance Use Type: Marijuana Advance Directives: No Advance Directives Information Provided: Yes Do you have a plan to hurt others: No Plan Current occupational status: employed Current occupation: [employer] /Left handed Physical Exam ED Vital Signs: Vital Signs - 24 hr 11/13/24 10:37 Temperature 98 F Pulse Rate 90 Respiratory Rate 16 Blood Pressure 106/63 Pulse Oximetry 97 Oxygen Delivery Method Room Air BMI result Body Mass Index 19.8 Well-appearing male in no acute distress Normal speech and cognition Small dry lesion to anterior scalp with overlying crusting Unlabored breathing Normal S1-S2 regular rate rhythm Medical Decision Making Medical Decision Making MDM Narrative: 29-year-old male presenting for nasal congestion and dry patch to scalp - I am concerned for the following; seasonal allergies, seborrheic dermatitis, tinea capitis, eczema I ordered patient a dose of loratadine to give here in the emergency department. I sent a prescription for triamcinolone and cetirizine to his pharmacy. I placed referral for primary care physician in the patient's discharge paperwork instructed him to follow up outpatient Discharge Plan Discharge Clinical Impression: Scalp itch, Seasonal allergic rhinitis Patient Disposition: Home, Self-Care Instructions: Allergic Rhinitis (DC) Additional Instructions: Please pickle maker your new medication take as instructed Please follow-up with your outpatient provider next 24-48 hours. Please refer to the primary care centers listed in your discharge paperwork Prescriptions: New triamcinolone acetonide 0.025 % cream 1 appl topical DAILY Qty: 15 0RF cetirizine 10 mg tablet 10 mg PO DAILY Qty: 14 0RF No Action ibuprofen 600 mg tablet 600 mg PO Q8H PRN (Reason: pain) Qty: 30 0RF ibuprofen 600 mg tablet 600 mg PO Q6H PRN (Reason: fever or pain) Qty: 30 0RF lidocaine 5 % adhesive patch,medicated 1 patch topical DAILY PRN (Reason: pain) Qty: 15 0RF Rx Instructions: leave on most painful area for up to 12 hrs clotrimazole 1 % cream 1 appl topical BID 14 Days Qty: 45 0RF naproxen 500 mg tablet 500 mg PO BID 30 Days Qty: 60 3RF Referrals: [facility] [place] [facility] [Provider Group] - 2 weeks (Patient needs a primary care physician) [facility] [place] [facility] [Provider Group] - 2 weeks (Patient needs a primary care physician) Print Language: Barbadian
[2024-11-13] MEDS: Loratadine 10 MG TABLET PO (11:46)
[2024-11-13 11:53] VITALS: BP 106/63; PULSE 90; RESP 16; TEMP 36.6; O2SAT 97
== END 2024-11-13 11:55 | disposition home or self-care (01) ==
PROVIDERS: Emergency Provider Student in an Organized Health Care Education/Training Program
DX: L29.89 Other pruritus (principal); J30.2 Other seasonal allergic rhinitis
CPT/HCPCS: 99283; 99284

== ENCOUNTER → 2025-01-23 09:26 | Outpatient (BNV) | payer MEDICARE, MEDICAID, SELFPAY | PROVIDERS: Visit Provider Radiology Vascular & Interventional Radiology | DX: M25.562 Pain in left knee (principal) | CPT/HCPCS: 73564 ==

== ENCOUNTER 2025-01-23 10:07 | Emergency (ER) | payer MEDICARE, MEDICAID, SELFPAY ==
--- NOTE | ~2025-01-23 | XR_ITS ---
CLINICAL HISTORY: nontraumic pain 4 view left knee Comparison: None provided Findings: Bones intact. No dislocations. No significant arthritic change or erosions. No joint effusion. No radiopaque foreign body. IMPRESSION: 1. No acute findings. This document has been electronically signed by: Derrick Carbajal MD on 01/23/2025 10:40:21
[2025-01-23 10:16] VITALS: BP 99/68; PULSE 101; RESP 20; TEMP 37; O2SAT 98; BMI 21.7
--- NOTE | 2025-01-23 11:05 | ED_ITS ---
HPI - General Adult General Chief complaint: Extremity Injury, Lower Stated complaint: knee pain Time Seen by Provider: 01/23/25 11:03 Source: patient Mode of arrival: ambulatory Limitations: no limitations History of Present Illness ED Provider: Ju Dela Cruz PA-C HPI narrative: Patient is a 29 year old assigned male at with a history of ADHD and bipolar disorder presenting to the emergency department today with left knee pain. Patient states that over the last 2 weeks he has had left knee pain. Patient states that it is painful when walking especially but he is able to bear weight. Patient states that the pain is around his knee cap. Patient denies any dizziness, lightheadedness, abdominal pain, nausea, vomiting, fever, chills, blurry vision, double vision, loss of vision, chest pain, difficulty breathing, shortness of breath, back pain, night sweats, pain with urination, increased urinary frequency, increased urinary urgency, blood in his urine or stool, syncope or a near syncopal episode, recent trauma or falls, bowel incontinence, bladder incontinence, or any other complaints at this time. Onset (ago): week(s) (2) Relieving factors: none Exacerbating factors: movement Associated symptoms: denies other symptoms Treatments prior to arrival: none Related Data Previous Rx's ?Medication ?Instructions ?Recorded ibuprofen 600 mg tablet 600 mg PO Q8H PRN pain #30 t abs 05/12/20 lidocaine 5 % topical patch 1 patch topical DAILY PRN pain #15 09/13/21 ea naproxen 500 mg tablet 500 mg PO BID 30 days #60 ta bs 11/02/21 ibuprofen 600 mg tablet 600 mg PO Q6H PRN fever or p ain 10/10/22 #30 tabs clotrimazole 1 % topical cream 1 appl topical BID 2 we eks #45 04/09/24 grams cetirizine 10 mg tablet 10 mg PO DAILY #14 tabs 10/22 11/14 triamcinolone acetonide 0.025 % 1 appl topical DAILY # 15 grams 11/13/24 topical cream naproxen 500 mg tablet 500 mg PO BID 7 days #14 tab s 01/23/25 Allergies Allergy/AdvReac Type Severity Reaction Status Date / Time pollen extracts Allergy Sneezing Verified 01/23/25 10:18 Review of Systems Constitutional: Constitutional: Reports no additional constitutional complaints, Denies chills, Denies fever(s) and Denies night sweats Eyes: Eyes: Reports no additional eye complaints, Denies blurry vision, Denies change in vision, Denies diplopia, Denies eye discharge, Denies loss of vision and Denies eye pain ENT: Denies dizziness Cardiovascular: Cardiovascular: Reports no additional cardiovascular complaints, Denies chest pain, Denies lightheadedness, Denies Loss of Consciousness and Denies dyspnea Respiratory: Respiratory: Reports no additional respiratory complaints and Denies dyspnea Gastrointestinal: Gastrointestinal: Reports no additional gastrointestinal complaints, Denies abdominal pain, Denies melena, Denies hematochezia, Denies change in bowel habits and Denies change in stool character Genitourinary: Genitourinary: Reports no additional male genitourinary com plaints, Denies hematuria, Denies oliguria, Denies difficulty urinating, Denies dysuria, Denies urinary frequency, Denies urinary hesitancy, Denies urinary incontinence and Denies urinary urgency Musculoskeletal: Musculoskeletal: Reports no additional musculoskeletal complaints, Denies numbness and Denies tingling Comments: left knee pain Neurologic: Denies dizziness, Denies loss of vision, Denies numbness and Denies tingling Psychiatric: Psychiatric: Reports no additional psychiatric complaints Endocrine: Endocrine: Reports no additional endocrine complaints Hematologic/Lymphatic: Hematologic/Lymphatic: Reports no additional hematologic/lymphatic complaints Allergic/Immunologic: Allergic/Immunologic: Reports no additional allergic/immunologic complaints [facility] Past Medical History Attestation statement: The following information was validated with the patient. Source: old records reviewed and nursing notes reviewed Medical History Bipolar disorder Personality disorder ADHD Social History Social History Household Members Other:: mom Housing: Apartment Substance Use Type: Marijuana Advance Directives: No Advance Directives Information Provided: No Current occupational status: employed Current occupation: [employer] /Left handed Physical Exam ED Vital Signs: Vital Signs - 24 hr 01/23/25 10:16 01/23/25 11:33 Temperature 98.6 F 98.6 F Pulse Rate 101 H 101 H Respiratory Rate 20 20 Blood Pressure 99/68 99/68 Pulse Oximetry 98 98 Oxygen Delivery Method Room Air Room Air BMI result Body Mass Index 21.7 Const General: cooperative, no acute distress, alert and awake Nutritional Appearance: well nourished Orientation/consciousness: patient oriented x3 HENMT Head: Yes normal to inspection and Yes atraumatic Ears: hearing grossly normal bilaterally and external ears normal General nose exam: Normal external nose present, no nasal discharge noted and no epistaxis Face and sinus: Yes normal facial exam, No abrasion and No laceration Mouth: Normal oral and palatal mucosa present, no drooling and no muffled voice Eyes General: appearance normal, both eyes and all related structures Periorbital: periorbital findings normal Eyelids: Yes eyelids normal Conjunctivae: conjunctivae normal Pupils: Equal, round and reactive pupils present EOM: EOMs intact bilaterally Neck Neck: Yes normal visual inspection, Yes full ROM and Yes no lymphadenopathy Resp Effort & Inspection: normal respiratory effort and able to speak in complete sentences Neuro General: patient oriented x3, moves all extremities and CN's II-XI intact bilaterally Cranial nerves: Yes Equal, round and reactive pupils present Cognition (Neuro): normal cognition Extrem Other: Pain with palpation of the left patella General: Yes normal to inspection, Yes full ROM and Yes capillary refill normal Psych Appearance: grossly normal Mental Status: mental status grossly normal Affect: normal affect Attitude: cooperative Thought process: Normal thought process present Thought content: Normal thought content present Insight: Good insight present (Psych) Medications Administered Discontinued Medications Generic Name Dose Route Start Last Admin Trade Name Freq PRN Reason Stop Dose Admin Ketorolac Tromethamine 15 mg 01/23/25 11:19 01/23/25 11:32 Ketorolac Tromethamine 15 Mg/Ml Vial IM 01/23/25 11:20 15 mg ONCE ONE Administration Procedures Orthopedic Splinting/Casting Injury #1: Side: left Lower Extremity Injury Location: knee Lower Extremity Immobilizer: Cayetano wrap Medical Decision Making Medical Decision Making MDM Narrative: Patient is a 29 year old assigned male at with a history of ADHD and bipolar disorder presenting to the emergency department today with left knee pain. Patient's physical exam was as noted in the physical exam portion of this note. Patient's left knee x-ray showed no acute process. Patient's clinical presentation is most consistent with patellofemoral overuse pain vs. disorder. I explained my physical exam findings as well as all test results to the patient. I answered all questions asked by the patient. Patient's left knee was placed in an CAYETANO wrap, for comfort, without incident. Patient's PMS in the left lower extremity was intact prior to and after CAYETANO placement. I stressed the importance of the patient taking his medication as directed (either prescribed or as the over the counter packaging recommends). I stressed the importance of the patient following up with his primary care provider and an orthopedic provider. I stressed the importance of the patient returning to the emergency department immediately if his symptoms were to worsen or if he were to develop any dizziness, shortness of breath, difficulty breathing, chest pain, blurry vision, loss of vision, nausea, vomiting, abdominal pain, fever, chills, back pain, or any other complaints. Patient verbalized agreement and understanding with this treatment plan and discharge. Differential Diagnosis Differential Diagnoses: The differential diagnosis associated with the presentation includes Left knee pain Left knee sprain Left knee strain Left patellofemoral disorder Admission/Observation Consideration of admission/observation: Escalation of care including admission/observation considered Patient would have been admitted to the hospital had his work up had any findings where hospital admission was appropriate and his clinical presentation warranted hospital admission. Independent Interpretation I performed an independent interpretation of an: Plain X-Ray Interpretation: My interpretation is in agreement with the radiologist's impression of this imaging study. CLINICAL HISTORY: nontraumic pain 4 view left knee Comparison: None provided Findings: Bones intact. No dislocations. No significant arthritic change or erosions. No joint effusion. No radiopaque foreign body. IMPRESSION: 1. No acute findings. This document has been electronically signed by: Derrick Carbajal MD on 01/23/2025 10:40:21 Dictated By: Derrick Carbajal MD Signed By: Electronically signed by Derrick Carbajal MD 01/23/25 1041 Radiology Impression Discussion of test interpretation with radiology: I have reviewed the radiologist's reading. Discharge Plan Discharge Clinical Impression: Patellofemoral disorder, Acute knee pain Patient Disposition: Home, Self-Care Instructions: Patellofemoral Pain Syndrome (ED), Knee Pain (ED) Additional Instructions: We applied an CAYETANO wrap to your left knee for comfort - you may remove this at any time. Follow up with your primary care provider and an quality improvement specialist. Return to the emergency department immediately if your symptoms worsen or if you develop any numbness, tingling, dizziness, shortness of breath, difficulty breathing, chest pain, blurry vision, loss of vision, nausea, vomiting, abdominal pain, fever, chills, back pain, or any other complaints. If you do not have a primary care provider - call any of the below numbers to establish and follow up with a primary care provider. [facility] [place] [place] Primary Care ([place]) [phone] [place] [address], [address] [facility] [place] [place] Primary Care (2 HD [place]) [phone] [place] [address], [address] [facility], [address] [facility] [place] [place] Primary Care (10 [address] [place]) [phone] [place] [address], [address] [facility], [address] [facility] [place] [place] Primary Care ([place]) [phone] [place] [address], [address] [facility], [address] [facility] [place] [place] Family Medicine [phone] [place] [address], [address] Please see the information below about our Patient Portal. If you are not yet enrolled in the [facility] Patient Portal, you will receive an enrollment email invitation following your visit to any [facility] [place] [place] setting. You may also self-enroll in the Patient Portal by visiting our website: [email or web address] The following information is required to access the Patient Portal: - Your [facility] [place] [place] Medical Record Number - Your personal home email address (must match what is in your electronic medical record, Registration staff can assist with this) - Name - Date of Capabilities of the Patient Portal: - Message some providers - View upcoming appointments - Access your health summary, medical history, and visit history - View current conditions and allergies - View procedure and lab results - View your medications, including guidelines, side effects, and precautions - Complete pre-appointment questionnaires requested by your provider - Ready summary reports of your office visits and procedures To access the Patient Portal Mobile Dennis, follow these directions: - Search VerbalizeIt in the Dennis Store or Shogether Store - Download the Dennis - Search for [facility] - Enter your login/password Prescriptions: New naproxen 500 mg tablet 500 mg PO BID 7 Days Qty: 14 0RF No Action ibuprofen 600 mg tablet 600 mg PO Q8H PRN (Reason: pain) Qty: 30 0RF ibuprofen 600 mg tablet 600 mg PO Q6H PRN (Reason: fever or pain) Qty: 30 0RF lidocaine 5 % adhesive patch,medicated 1 patch topical DAILY PRN (Reason: pain) Qty: 15 0RF Rx Instructions: leave on most painful area for up to 12 hrs triamcinolone acetonide 0.025 % cream 1 appl topical DAILY Qty: 15 0RF cetirizine 10 mg tablet 10 mg PO DAILY Qty: 14 0RF clotrimazole 1 % cream 1 appl topical BID 14 Days Qty: 45 0RF naproxen 500 mg tablet 500 mg PO BID 30 Days Qty: 60 3RF Referrals: [facility] [place] [place] Orthopedic Surgeons [Provider Group] Referral Note: Call to establish and follow up with the orthopedic team. Interventions: ED Discharge Assessment Last Done: 01/23/25 11:33 Discharge Date/Time: 01/23/25 11:38 Print Language: Yoruba
[2025-01-23 11:33] VITALS: BP 99/68; PULSE 101; RESP 20; TEMP 37; O2SAT 98
== END 2025-01-23 11:38 | disposition home or self-care (01) ==
PROVIDERS: Emergency Provider Emergency Medicine Emergency Medical Services
DX: M25.562 Pain in left knee (principal)
CPT/HCPCS: 73564; 96372; 99283; 99284; J1885

== ENCOUNTER 2025-02-23 08:21 | Outpatient (REF) | payer MEDICARE, MEDICAID, SELFPAY ==
--- NOTE | ~2025-02-23 | XR_ITS ---
EXAMINATION: XR KNEE, LEFT CLINICAL INFORMATION: M25.562 - Pain in left knee COMPARISON: 02/23/2025. TECHNIQUE: Patellofemoral view of the left knee. FINDINGS: No fracture, dislocation, or suspicious bone lesion. Normal patellar alignment. Preserved joint space. Normal soft tissues. XR/XR knee LT 1V IMPRESSION: Normal patellofemoral view left knee. Electronically signed by: Darrian Watkins MD 02/23/2025 09:30 AM EDT
--- OUTSIDE RECORDS SUMMARY | 2025-02-23 08:35 | XMS_ITS | Clinical Summary ---
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 Role Phone Unavailable Primary Care Provider Unavailabl e Medications cetirizine (ZyrTEC) 10 MG tablet TAKE 1 TABLET BY MOUTH EVERY DAY FOR ALLERGIES 90 tablet 3 Active Social History Tobacco Use Types Packs/Day Years Used Date Smoking Tobacco: Never Assessed Sex and Gender Information Value Date Recorded Sex Assigned at Male 05/22/2022 10:16 AM EDT Legal Sex Male 10:16 AM EDT Gender Identity Choose not to disclose 10:16 AM EDT Sexual Orientation Choose not to disclose 2021 10:16 AM EDT Last Filed Vital Signs Vital Sign Reading Time Taken Comments Blood Pressure 110/78 07/08/2021 12:12 AM EST Pulse 80 07/08/2021 12:12 AM EST Temperature - - Respiratory Rate - - Oxygen Saturation - - Inhaled Oxygen Concentration - - Weight 62.1 kg (136 lb 12.8 oz) 021 12:12 AM EST Height 172.7 cm (5' 8 ) 07/08/2021 12:1 2 AM EST Body Mass Index 20.8 07/08/2021 12:12 AM EST Plan of Treatment Upcoming Encounters Date Type Department Care Team (Late st Contact Info) Description 03/04/2025 2:00 PM EDT Office Visit [facility] [address] [place] [address] Amaya Hicks NP [address] [place] [address] Health Maintenance Due Date Last Done Comments Depression Screening 1995 SDOH Screening 1995 Disability Screening 1995 Alcohol/Substance Use Screening 2007 Tobacco Screening 2007 Family Planning (PISQ) 2010 COVID-19 Vaccine ( season) 2024 Influenza Vaccine (#1) 2025 3, 07/21/2019, 07/26/2000 DTaP/Tdap/Td Vaccines (9 - Td or Tdap) 05/12/2030 05/12/2020, 07/21/2019, 04/08/2007, Additional history exists Zoster Vaccines (1 of 2) 2045 RSV Patients and Patients Aged 60 years or older (1 - 1-dose 75+ series) 2070 Hepatitis B Vaccines Completed 11/27/1996, 03/12/1996, 1995 HIB Vaccines Completed 04/28/1997, 02/1997, 1995 IPV Vaccines Completed 05/08/1997, 02/1997, 03/12/1996, Additional history exists HPV Vaccines Completed 11/17/2014, 12/21, 10/26/2011 Hepatitis A Vaccines Completed 11/17/2014, 01/01/20 13 Meningococcal Vaccine Aged Out 11/17/2014, 007 No longer eligible based on patient's age to complete this topic HIV Screening Completed 07/08/2021 Hepatitis C Screening Completed 07/08/2021 Meningococcal B Vaccine Aged Out No l onger eligible based on patient's age to complete this topic Pneumococcal Vaccine: Pediatrics (0 to 5 Years) and At-Risk Patients (6 to 49) Years Aged Out No longer eligible based on patient's age to complete this topic RSV under 20 months Aged Out No longe r eligible based on patient's age to complete this topic Rotavirus Vaccines Aged Out No longer eligible based on patient's age to complete this topic Procedures Procedure Name Priority Date/Time Associated Diagnosis Comments ZZZ HISTORICAL HEPATITIS C AB W/REFL TO HCV RNA, QN, PCR Routine 07/08/2021 11:02 AM EST HIV 1/2 ANTIGEN/ANTIBODY, FOURTH GENERATION W/RFL Routine 07/08/2021 11:02 AM EST from Last 3 Months or Most Recently Relevant to Health Maintenance Results * HEPATITIS C AB W/REFL TO HCV RNA, QN, PCR (07/08/2021 11:02 AM EST) HEPATITIS C ANTIBODY NON-REACT YENI NON-REACT YENI [facility] INDEX 0.02 <1.00 [facility] Comment: HCV antibody was non-reactive. There is no laboratory evidence of HCV infection. In most cases, no further action is required. However, if recent HCV exposure is suspected, a test for HCV RNA (test code 94635) is suggested. For additional information please refer to http://education.[employer]/faq/DWQ46y0 (This link is being provided for informational/ educational purposes only.) 07/08/2021 11:0 2 AM EST us Rivera Name MD HISTORICAL/NON ORDERABLE LABS Fi nal Result [facility] [address] * HIV 1/2 ANTIGEN/ANTIBODY,FOURTH GENERATION W/RFL (07/08/2021 11:02 AM EST) HIV-1/2 ANTIGEN AND ANTIBODIES, 4TH GENERATION W/ REFLEX NON-REACT YENI NON-REACT YENI [facility] Comment: HIV-1 antigen and HIV-1/HIV-2 antibodies were not detected. There is no laboratory evidence of HIV infection. PLEASE NOTE: This information has been disclosed to you from records whose confidentiality may be protected by state law. If your state requires such protection, then the state law prohibits you from making any further disclosure of the information without the specific written consent of the person to whom it pertains, or as otherwise permitted by law. A general authorization for the release of medical or other information is NOT sufficient for this purpose. For additional information please refer to http://education.[employer] [place]/faq/CVP787 (This link is being provided for informational/ educational purposes only.) The performance of this assay has not been clinically validated in patients less than 2 years old. 07/08/2021 11:0 2 AM EST us Rivera Name LAB BLOOD ORDERABLES Final Resul t [facility] [address] from Last 3 Months or Most Recently Relevant to Health Maintenance Insurance [facility] C3
== END 2025-02-23 08:22 | disposition home or self-care (01) ==
LOC: HO.XRAY 08:21
PROVIDERS: Visit Provider Physician Assistant
DX: S83.002A Unspecified subluxation of left patella, initial encounter (principal)
CPT/HCPCS: 73560

== ENCOUNTER 2025-02-23 08:45 | Outpatient (AMB) | payer MEDICARE, MEDICAID, SELFPAY ==
--- NOTE | 2025-02-23 09:22 | MHC.OFFVIS ---
Vital Signs 02/23/25 09:28 Height 5 ft 8 in Weight 135 lb BMI 20.5 Intake Visit Reasons: ED-Left knee pain Intake Note: Satnam is a 29 year old male who presents today as a new patient for an ER follow up of left knee pain. Patient presented to [facility] ER for knee pain that had been present for a couple of weeks, located around his knee. An x-rays was obtained and he was referred to orthopedics. Patient reports that his pain may be caused from when he performed a 1 legged back flip. He states he also played baksteball after this. Today patient reports sharp pain at the anterior aspect of knee, as well as stiffness. At times he has difficulty with walking. Finds tawanna wrap for compression is no longer providing him with relief. No previous treatment. Allergies pollen extracts Allergy (Verified 02/23/25 09:27) Sneezing Medication List - Last Reconciled 02/23/25 by Adriana Giles PA-C cetirizine 10 mg PO DAILY clotrimazole 1% 1 appl topical BID 2 weeks ibuprofen 600 mg PO Q8H PRN ibuprofen 600 mg PO Q6H PRN lidocaine 5% 1 patch topical DAILY PRN naproxen 500 mg PO BID 7 days naproxen 500 mg PO BID 30 days triamcinolone acetonide 0.025% 1 appl topical DAILY HPI HPI ED-Left knee pain: Details: 29-year-old gentleman presents to the office today for an injury he sustained to his left knee while doing a 1 legged back flip. He does not recall anything awkward when landing but later when he played basketball he did feel knee directly behind the patella into the patellar tendon. [facility] Medical History Bipolar disorder Personality disorder ADHD Social History (Updated 02/23/25 @ 09:28 by SUSY Moreau) Household Members Other:: mom Housing: Apartment Patient Tobacco Use Status: Never used Tobacco Substance Use Type: Marijuana Current occupational status: employed Current occupation: [employer] /Left handed Review of Systems Const All systems reviewed & are unremarkable except as noted in HPI and below Physical Exam Vital Signs: BMI result Body Mass Index 20.5 Const General: cooperative and no acute distress Orientation/consciousness: patient oriented x3 Resp Effort & Inspection: normal respiratory effort and able to speak in complete sentences Cardio Peripheral pulses: Peripheral pulses 2+ throughout Neuro General: patient oriented x3 Extrem Other: Left knee is normal to inspection no swelling or erythema. No palpable defect over the patellar or quad tendon. He has full range of motion with an audible clunk along the patella. He has a positive Joselyn's. Calf supple and nontender neurovascularly intact. Results Reviewed Results Reviewed: X-rays of the left knee are negative for any acute or chronic abnormalities. Assessment & Plan Assessment & Plan (1) Subluxation of left patella: Code(s): S83.002A - Unspecified subluxation of left patella, initial encounter Category: Medical Plan: He was fit for a Genumed knee brace to help with stabilization of the knee. An MRI of the left knee has also been ordered to further evaluate the meniscus a systematic strictures. He was given a note today to return to work tomorrow. No restrictions. He will see me back once the MRI is complete. Orders: Orders XR knee LT 1V Today M25.562 - Pain in left knee MR knee LT wo con Today M17.12 - Unilateral primary osteoarthritis, left knee Coding Level of Care Code Est Pt Level 3 (42928) Complex EM visit Add On G2211 Diagnoses Subluxation of left patella S83.002A
[2025-02-23 09:28] VITALS: BMI 20.5
== END 2025-02-23 10:21 | disposition home or self-care (01) ==
LOC: HO.HOS 08:46
PROVIDERS: Visit Provider Physician Assistant
DX: S83.002A Unspecified subluxation of left patella, initial encounter (principal)
CPT/HCPCS: 99213; G2211

== ENCOUNTER → 2025-02-23 08:54 | Outpatient (BNV) | payer MEDICARE, MEDICAID, SELFPAY | PROVIDERS: Visit Provider Radiology Diagnostic Radiology | DX: M25.562 Pain in left knee (principal) | CPT/HCPCS: 73560 ==

== ENCOUNTER → 2025-03-05 18:13 | Outpatient (BNV) | payer MEDICARE, MEDICAID, SELFPAY | PROVIDERS: Visit Provider Radiology Diagnostic Radiology | DX: M17.12 Unilateral primary osteoarthritis, left knee (principal) | CPT/HCPCS: 73721 ==

== ENCOUNTER 2025-03-05 18:14 | Outpatient (REF) | payer MEDICARE, MEDICAID, SELFPAY ==
--- NOTE | ~2025-03-05 | MR_ITS ---
EXAMINATION: MRI LEFT KNEE WITHOUT CONTRAST HISTORY: M17.12 - Unilateral primary osteoarthritis, left knee COMPARISON: Correlation is made with plain films of the left knee dated 01/23/2025. TECHNIQUE: Coronal T1 and fat-suppressed proton density, sagittal proton density and fat-suppressed proton density, and axial fat suppressed T2 weighted MR images of the left knee were obtained. FINDINGS: Bone marrow: Bone marrow signal intensity is normal. Joint effusion: There is no joint effusion. Warner's cyst: There is no Warner's cyst. Articular cartilage: There is mild thinning of the patellar cartilage. Muscles/soft tissues: The visualized muscles demonstrate normal signal intensity. Anterior cruciate ligament: Intact Posterior cruciate ligament: Intact Medial collateral ligament: Intact Lateral collateral ligament: Intact Medial meniscus: Intact Lateral meniscus: Intact Flexor mechanism: The popliteus, gastrocnemius, and hamstring tendons are intact. Quadriceps tendon: Intact Patellar tendon: Intact Patellar retinacula: Intact MR/MR knee LT wo con IMPRESSION: Mild thinning of the patellar cartilage. Otherwise unremarkable MRI of the left knee. Electronically signed by: Blas Beard MD 03/06/2025 07:23 AM EDT
== END 2025-03-05 18:15 | disposition home or self-care (01) ==
LOC: HO.MRI 18:14
PROVIDERS: Visit Provider Physician Assistant
DX: M17.12 Unilateral primary osteoarthritis, left knee (principal)
CPT/HCPCS: 73721

== ENCOUNTER 2025-05-20 13:18 | Outpatient (AMB) | payer MEDICARE, MEDICAID, SELFPAY ==
--- NOTE | 2025-05-20 13:23 | MHC.OFFVIS ---
Vital Signs 05/20/25 13:26 Height 5 ft 8 in Weight 135 lb BMI 20.5 Intake Visit Reasons: MRI review of left knee Intake Note: Satnam is a 29 year old male who presents today for an MRI review of left knee. At his last visit he was provided with a genumed knee brace, he was cleared to return to work with no restrictions. Today patient reports intermittent pain, that increases with the cold weather. He has been using knee bracing, stating bracing helps. Allergies pollen extracts Allergy (Verified 05/20/25 13:27) Sneezing Medication List - Last Reconciled 05/20/25 by Adriana Giles PA-C naproxen 500 mg PO BID 30 days HPI HPI MRI review of left knee: Details: 29-year-old gentleman returns to the office today for a follow-up left knee pain. He states his knee is doing okay but he has some discomfort with going up and downstairs or with walking up and down hill he feels discomfort behind the patella. No instability. 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 Lateral retropatellar tenderness present. Full range of motion with crepitus. Calf supple and nontender neurovascularly intact. Results Reviewed Results Reviewed: MR knee LT wo con IMPRESSION: Mild thinning of the patellar cartilage. Otherwise unremarkable MRI of the left knee. Assessment & Plan Assessment & Plan (1) Subluxation of left patella: Code(s): S83.002A - Unspecified subluxation of left patella, initial encounter Category: Medical (2) Patellofemoral disorders, left knee: Code(s): M22.2X2 - Patellofemoral disorders, left knee Category: Medical Plan MRI was reviewed with the patient while in the office today is findings are consistent with patellofemoral disorder and I recommend a course of physical therapy to work on strengthening exercises. He was also given a prescription for naproxen to help with inflammation. I did educate him on occasional flare-ups and how to manage this with modification of activity and NSAIDs. If symptoms worsen over the next 6-8 weeks the patient can contact our office and we can discuss steroid injections otherwise she will follow up as needed. Orders: Orders PT Evaluation and Treatment Today M22.2X2 - Patellofemoral disorders, left knee, S83.002A - Unspecified subluxation of left patella, initial encounter Medications: New naproxen 500 mg PO BID 60 tabs 3RF 30 days S93.409A - Sprain of unspecified ligament of unspecified ankle, initial encounter Coding Level of Care Code Est Pt Level 3 (42310) Complex EM visit Add On G2211 Diagnoses Subluxation of left patella S83.002A Patellofemoral disorders, left knee M22.2X2
[2025-05-20 13:26] VITALS: BMI 20.5
--- OUTSIDE RECORDS SUMMARY | 2025-05-20 16:52 | XMS_ITS | Clinical Summary ---
Author Organization [employer] Address [address] [place] [address] Care Team Providers Care Speed Reading Teacher Name Role Phone Amaya Hicks NP Primary Care Provider [phone] Allergies No known active allergies Medications cetirizine (ZyrTEC) 10 MG tabletIndicatio ns:Seasonal allergies TAKE 1 TABLET BY MOUTH EVERY DAY FOR ALLERGIES 90 tablet 5 Active albuterol 108 (90 Base) MCG/ACT inhalerIndicati ons:History of asthma Inhale 2 puffs every 4 (four) hours if needed for wheezing. 18 g 5 03/04/20 26 Active Active Problems Problem Noted Date Diagnosed Date Sleep disturbance 03/04/2025 Assessment & Plan (03/04/2025 3:35 PM EDT): -chronic -suspect its r/t to underlying anxiety/ unresolved trauma -sleep hygiene measures discussed: keep a consistent bed and awakening time; avoid coffee, caffinated drink or foods right before bed; avoid looking at phone or TV 30 min before bed; engage in daily physical activity 4-6 hrs before bed; keep the place where you sleep quiet and dark use a white noise machine or ear plugs to block out sound if needed -patient advised to sleep with cell phone outside her room; to prevent sound- wave distrubance. -gentle stretching/ meditate before bed Attention deficit hyperactivity disorder 013 Oppositional defiant disorder 09/26/2012 Encounters Date Type Department Care Team Description 03/24/2025 Refill [facility] MED[facility]INE [address] [place] [address] Amaya Hicks NP History of asthma 03/04/2025 2:00 PM EDT Office Visit [facility] [address] [place] [address] Amaya Hicks NP History of asthma (Primary Dx); Seasonal allergies; Sleep disturbance; Encounter for health-related screening; Encounter to establish care; Behavioral problems 03/04/2025 Travel 03/03/2025 Telephone [facility] MED[facility] [address] [place] [address] Brandie Treadwell MA CHARTPREP 02/25/2025 Patient Outreach [facility] [address] [place] [address] Amaya Hicks NP Pre-visit Planning (SDOH negative, Tobacco screening negative. ) from Last 3 Months Family History Medical History Relation Name Comments Multiple sclerosis Father Alcohol abuse Maternal Grandfather Diabetes Mother's Brother Relation Name Status Comments Father Maternal Grandfather Mother's Brother Social History Tobacco Use Types Packs/Day Years Used Date Smoking Tobacco: Never Passive Smoke Exposure: Never Smokeless Tobacco: Never Tobacco Cessation:Counseling Given: Not Answered Alcohol Use Standard Drinks/Week Comments Yes 0 (1 standard drink = 0.6 oz pur e alcohol) special occasions Alcohol Answer Date Recorded How often do you have a drink containing alcohol ? 2 03/04/2025 How many drinks containing a lcohol do you have on a typical day when you are drinking? 2 03/04/2025 How often do you have six or more drinks on one occasion? 1 03/04/2025 Depression Answer Date Recorded Patient Health Questionnaire-9 Score 3 03/04/2025 Patient Health Questionnaire-9 Score 3 03/04/2025 Last PHQ-9: Questionnaire Data Not on file 0 03/04/2025 Housing Stability Answer Date Recorded What is your housing situation today? I have dottiejeny espinal 02/25/[address] you li ve. Do you have problems with any of the following? None of the above 02/25/2025 Food Insecurity Answer Date Recorded Within the past 12 months, y ou worried that your food would run out before you got money to buy more: Never True 02/25/2025 Within the past 12 months,th e food you bought just didn't last and you didn't have enough money to get more: Never True 12/2024 Transportation Answer Date Recorded In the past 12 months, has l ack of transportation kept you from medical appts, meetings, work or from getting things needed for daily living? No 02/25/2025 Utilities Answer Date Recorded In the past 12 months, has t he electric, gas, oil or water company threatened to shut off services in your home? No 02/25/2025 Depression Answer Date Recorded Patient Health Questionnaire-2 Score 0 03/04/2025 Internet Access Answer Date Recorded Internet Access Q1 Yes 02/25/2025 Internet Access Q2 Not on file 02/25/2025 Sex and Gender Information Value Date Recorded Sex Assigned at Male 05/22/2022 10:16 AM EDT Legal Sex Male 10:16 AM EDT Gender Identity Choose not to disclose 10:16 AM EDT Sexual Orientation Choose not to disclose 2021 10:16 AM EDT Last Filed Vital Signs Vital Sign Reading Time Taken Comments Blood Pressure 120/84 03/04/2025 2:22 PM EDT Pulse 70 03/04/2025 2:22 PM EDT Temperature 36.7 C (98.1 F) 03/04/2025 2:22 PM EDT Respiratory Rate 16 03/04/2025 2:22 PM EDT Oxygen Saturation 97% 03/04/2025 2:22 PM EDT Inhaled Oxygen Concentration - - Weight 61.1 kg (134 lb 9.6 oz) 03/04/2025 2:22 P M EDT Height 172.7 cm (5' 8 ) 03/04/2025 2:22 PM EDT Body Mass Index 20.47 03/04/2025 2:22 PM EDT Plan of Treatment Health Maintenance Due Date Last Done Comments COVID-19 Vaccine ( season) 2025 Influenza Vaccine (#1) 2025 , 07/21/2019, 07/26/2000 SDOH Screening 02/25/2026 02/25/2025 Alcohol/Substance Use Screening 03/04/2026 03/04/2025 Depression Screening 03/04/2026 03/04/2025, 03/04/20 Disability Screening 03/04/2026 03/04/2025 Family Planning (PISQ) 03/04/2026 03/04/2025 Tobacco Screening 03/04/2026 03/04/2025 DTaP/Tdap/Td Vaccines (9 - Td or Tdap) [...] HEPATITIS C ANTIBODY NON-REACT YENI NON-REACT YENI [facility] INDEX 0.02 <1.00 [facility] Comment: HCV antibody was non-reactive. There is no laboratory evidence of HCV infection. In most cases, no further action is required. However, if recent HCV exposure is suspected, a test for HCV RNA (test code 44960) is suggested. For additional information please refer to http://[employer].Take5/faq/AET42h4 (This link is being provided for informational/ educational purposes only.) 07/08/2021 11:0 2 AM EST Rivera Alcocer MD HISTORICAL/NON ORDERABLE LABS Fi nal Result Performing Organization Address [facility] Phone Number [facility] [address] * HIV 1/2 ANTIGEN/ANTIBODY,FOURTH GENERATION W/RFL (07/08/2021 11:02 AM EST) HIV-1/2 ANTIGEN AND ANTIBODIES, 4TH GENERATION W/ REFLEX NON-REACT YENI NON-REACT YENI [facility] Comment: HIV-1 antigen and HIV-1/HIV-2 [...] purpose. For additional information please refer to http://education.[employer].Sidecar/faq/GTE151 (This link is being provided for informational/ educational purposes only.) The performance of this assay has not been clinically validated in patients less than 2 years old. 07/08/2021 11:0 2 AM EST us Rivera Alcocer MD LAB BLOOD ORDERABLES Final Resul t Performing Organization Address [facility] Phone Number [facility] [address] from Last 3 Months or Most Recently Relevant to Health Maintenance Insurance MEDICARE Care Teams Speed Reading Teacher Relationship Specialty Start Date End Date Amaya Hicks NP [address] [place] [phone] PCP - General Family Medicine 03/04/25
--- OUTSIDE RECORDS SUMMARY | 2025-05-20 16:53 | XMS_ITS | Encounter Summary ---
Author Organization [employer] Address [address] [place] [address] Care Team Providers Care Technical Rep Name Role Phone Amaya Hicks WAREHOUSING TECHNICIAN Primary Care Provider [phone] Reason for Visit * Reason Comments Med Refill Encounter Details Date Type Department Care Team ([facility] st Contact Info) Description 03/24/2025 [facility]ill [facility] [address] [place] [address] Amaya Hicks NP [address] [place] [address] History of asthma Social History Tobacco Use Types Packs/Day Years Used Date Smoking Tobacco: Never Passive Smoke Exposure: Never Smokeless Tobacco: Never Alcohol Use Standard Drinks/Week Comments Yes 0 [...] is your housing situation today? I have dottie espinal 02/25/[address] you [...] not to disclose 2021 10:16 AM EDT documented as of this encounter Plan of Treatment Not on file documented as of this encounter Visit Diagnoses Diagnosis History of asthma Personal history of other diseases of respiratory system documented in this encounter Additional Health Concerns Assessment Noted Time PHQ-9 Depression Total Score: 3 03/04/20 25 3:04 PM EDT documented as of this encounter Care Teams Technical Rep Relationship Specialty Start Date End Date Amaya Hicks NP [address] [place] [id number] PCP - General Family Medicine 03/04/25 documented as of this encounter
== END 2025-05-20 15:13 | disposition home or self-care (01) ==
LOC: HO.HOS 13:19
PROVIDERS: Visit Provider Physician Assistant
DX: S83.002A Unspecified subluxation of left patella, initial encounter (principal); M22.2X2 Patellofemoral disorders, left knee
CPT/HCPCS: 99213; G2211

== ENCOUNTER → 2025-05-20 13:18 | Outpatient (BNVA) | payer MEDICARE, MEDICAID, SELFPAY | PROVIDERS: Visit Provider Physician Assistant | DX: M22.2X2 Patellofemoral disorders, left knee (principal); S83.002A Unspecified subluxation of left patella, initial encounter | CPT/HCPCS: 99212 ==